=== PATIENT | female | born 1975 | race American Indian/Alaskan Native ===

== ENCOUNTER 2019-01-28 13:50 | Emergency (ER) | payer OTHER ==
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
[2019-01-28] MEDS ORDERED: IBUPROFEN PO ONE (17:03)
[2019-01-28 17:56] VITALS: BP 124/77
== END 2019-01-28 17:54 | disposition home or self-care (01) ==
LOC: ED 13:50
DX: S46.911A Strain of unspecified muscle, fascia and tendon at shoulder and upper arm level, right arm, initial encounter (principal); S39.012A Strain of muscle, fascia and tendon of lower back, initial encounter; Z79.899 Other long term (current) drug therapy; Z88.2 Allergy status to sulfonamides; V89.2XXA Person injured in unspecified motor-vehicle accident, traffic, initial encounter; Y93.89 Activity, other specified; Y92.488 Other paved roadways as the place of occurrence of the external cause; Y99.8 Other external cause status
CPT/HCPCS: 99282